=== PATIENT | female | born 2000 | race Caucasian/White ===

== ENCOUNTER 2022-09-28 17:20 | Emergency (ER) | payer OTHER ==
[2022-09-28 17:32] VITALS: BP 124/70
[2022-09-28] MEDS ORDERED: DOXEPIN 10 MG CAPSULE PO STA (18:00)
--- NOTE | 2022-09-28 18:00 | ED Physician Documentation ---
History of Present Illness - Stated complaint Stated Complaint: LT ARM RASH - Chief complaint Chief Complaint: Ext Problem - History obtained from History obtained from: Patient - Additonal information Additional information: 22-year-old woman is 7 days out from a left labral tear surgery. Over the last couple of days has developed quite an itchy rash to the upper left arm. No other new exposures. PD PAST MEDICAL HISTORY - Past Medical History Past Medical History: No Cardiovascular: None Respiratory: None Neuro: None Endocrine/Autoimmune: None GI: None CANDY PACKER: None : None HEENT: None Psych: None Musculoskeletal: None Derm: None - Past Surgical History Past Surgical History: Yes General: Other Ortho: Other - Present Medications Home Medications: Ambulatory Orders Medication Instructions Recorded Confirmed Doxepin [SINEquan] 10 mg PO TID PRN #30 cap 09/28/22 predniSONE [Deltasone] 20 mg PO [id number] #21 tab 09/28/22 - Allergies Allergies/Adverse Reactions: Allergies Allergy/AdvReac Type Severity Reaction Status Date / Time etomidate AdvReac Unknown Verified 09/28/22 17:32 - Social History Does the pt smoke?: No Smoking Status: Never smoker Does the pt drink ETOH?: No Does the pt have substance abuse?: No - Immunizations Immunizations are current?: Yes - POLST Patient has POLST: No PD ED PE NORMAL - Vitals Vital signs reviewed: Yes - General General: Alert and oriented X 3, No acute distress - HEENT HEENT: PERRL, EOMI - Extremities Extremities: Other (Kind of a contact dermatitis looking rash to the left upper arm. Surgical incisions looking fine.) - Neuro Neuro: Alert and oriented X 3, Normal speech Results - Vitals Vitals: Vital Signs - 24 hr 09/28/22 17:25 Temperature 36.2 C L Heart Rate 73 Respiratory 19 Rate Blood Pressure 124/70 O2 Saturation 99 Oxygen O2 Source Room air Departure - Departure Disposition: 01 Home, Self Care Clinical Impression: Contact dermatitis Qualifiers: Contact dermatitis type: allergic Contact dermatitis trigger: unspecified trigger Qualified Code(s): L23.9 - Allergic contact dermatitis, unspecified cau se Condition: Good Record reviewed to determine appropriate education?: Yes Instructions: ED Dermatitis Contact Prescriptions: predniSONE [Deltasone] 20 mg PO [id number] #21 tab Doxepin [SINEquan] 10 mg PO TID PRN #30 cap PRN Reason: Itching Comments: Follow-up with your surgeon as scheduled. Return for new or worsening symptoms.
[2022-09-28] MEDS ORDERED: predniSONE 20 MG TABLET PO STA (18:01)
== END 2022-09-28 18:12 | disposition home or self-care (01) ==
LOC: ED 17:20
DX: L23.9 Allergic contact dermatitis, unspecified cause (principal)
CPT/HCPCS: 99282; 99283; A9270; J7512

== ENCOUNTER 2023-07-20 21:56 | Emergency (ER) | payer OTHER ==
[2023-07-20 22:05] VITALS: BP 120/75; O2SAT 98
--- NOTE | 2023-07-20 23:01 | ED Physician Documentation ---
History of Present Illness - Stated complaint Stated Complaint: BACK PX - Chief complaint Chief Complaint: Back Pain - History obtained from History obtained from: Patient - Additonal information Additional information: 22yF previously Healthy presents with low back pain upon waking today after playing basketball yesterday. Patient denies any specific injury. Denies urinary symptoms, fever, saddle anesthesia, numbness or weakness. PD PAST MEDICAL HISTORY - Past Medical History Cardiovascular: None Respiratory: None Neuro: None Endocrine/Autoimmune: None GI: None POOL INSTALLER: None : None HEENT: None Psych: None Musculoskeletal: None Derm: None - Past Surgical History Past Surgical History: Yes General: Other Ortho: Other - Present Medications Home Medications: Ambulatory Orders Medication Instructions Recorded Confirmed Cyclobenzaprine [Flexeril] 10 mg PO TID PRN 6 Days #20 tablet 07/20/23 - Allergies Allergies/Adverse Reactions: Allergies Allergy/AdvReac Type Severity Reaction Status Date / Time etomidate AdvReac Severe Unknown Verified 07/20/23 22:11 - Social History Does the pt smoke?: No Smoking Status: Never smoker Does the pt drink ETOH?: No Does the pt have substance abuse?: No - Immunizations Immunizations are current?: Yes - POLST Patient has POLST: No PD ED PE NORMAL - Vitals Vital signs reviewed: Yes - General General: Alert and oriented X 3, No acute distress, Well developed/nourished - HEENT HEENT: Atraumatic, PERRL, EOMI, Moist mucous membranes, Pharynx benign - Neck Neck: Supple, no meningeal sign - Cardiac Cardiac: RRR - Respiratory Respiratory: No respiratory distress, Clear bilaterally - Abdomen Abdomen: Non tender, Non distended - Derm Derm: Normal color, Warm and dry - Extremities Extremities: No deformity, Other (CSM intact bilateral lower extremity) - Neuro Neuro: Alert and oriented X 3 - Psych Psych: Normal mood, Normal affect Results - Vitals Vitals: Vital Signs - 24 hr 07/20/23 22:00 Temperature 36.5 C Heart Rate 85 Respiratory 16 Rate Blood Pressure 120/75 O2 Saturation 98 Oxygen O2 Source Room air PD Medical Decision Making - ED course ED course: 22-year-old woman presents with bilateral lower back spasm upon waking this morning, improved status post IM Toradol and oral Flexeril. Symptomatic care discussed and return precautions given. Prescription sent to pharmacy. Plan to follow-up with primary care provider. Departure - Departure Disposition: 01 Home, Self Care Clinical Impression: Low back strain Condition: Stable Instructions: ED Spasm Back No Trauma Prescriptions: Cyclobenzaprine [Flexeril] 10 mg PO TID PRN 6 Days #20 tablet PRN Reason: Spasms Comments: You were seen in the emergency department for back strain/spasm. Prescription sent to [email or web address]. Please follow-up with your primary care provider and return to the emergency department if you have any new or worsening symptoms or other concerns.
[2023-07-20] MEDS: KETOROLAC 30 MG/ML VIAL IM STA (23:07)
[2023-07-20] MEDS: CYCLOBENZAPRINE 10 MG TABLET PO STA (23:07)
== END 2023-07-20 23:14 | disposition home or self-care (01) ==
LOC: ED 21:56
DX: S39.012A Strain of muscle, fascia and tendon of lower back, initial encounter (principal); X58.XXXA Exposure to other specified factors, initial encounter; Y93.67 Activity, basketball
CPT/HCPCS: 96372; 99283; A9270